=== PATIENT | female | born 1975 | race Two or more races ===

== ENCOUNTER → 2020-12-20 | Outpatient (CLI) | payer OTHER ==
--- NOTE | 2020-12-20 17:28 | RAD ---
EXAM: 3 Views Left Shoulder DATE: 12/20/2020 3:35 PM INDICATION: Reason: LEFT SHOULDER PAIN. / Spl. Instructions: / History: COMPARISON: No Prior FINDINGS: There is no evidence for acute fracture or dislocation. AC joint is congruent. Small rounded lucencie s within the glenoid and greater tuberosity possibly from prior surgery. Humeral head is not high rid ing. IMPRESSION: 1. No acute fracture or dislocation. Electronically signed by: Zay Crum MD (12/20/2020 5:26 PM) [id number]
== END ==
LOC: RAD 15:20
PROVIDERS: ATTEND Family Medicine
DX: M25.512 Pain in left shoulder (principal)
CPT/HCPCS: 73030